=== PATIENT | male | born 1985 | race Caucasian/White ===

== ENCOUNTER 2018-07-20 06:57 | Emergency (ER) | payer OTHER, BC ==
--- NOTE | 2018-07-20 07:22 | EDM.PDOC ---
ED HPI GENERAL MEDICAL PROBLEM - General Chief Complaint: General Stated Complaint: TINGLING HANDS AND BODY AND FEELING HOT Time Seen by Provider: 07/20/18 07:05 Source of Information: Reports: Patient, Family (co worker ) History Limitations: Reports: No Limitations - History of Present Illness INITIAL COMMENTS - FREE TEXT/NARRATIVE: 33-year-old male presents to the ED with reports of sudden onset of development of numbness and tingling in his perioral area as well as both hands and particularly his arms. [place] a diffuse flushing hot prickly sensation as well. This occurred while traveling in a vehicle on his way to work the symptoms lasted well over half an hour. When he arrived here he states he was starting to feel better. He did feel a little weak and a little off balance when he got out of the vehicle. Examination reveals him to be alert and oriented and neuro exam is completely normal. Patient recently started sertraline anxiety disorder about 8 days ago. He takes this at bedtime. Also had started lisinopril tablet for hypertension. Initial BP was 105/60 which was probably incorrect. Second one was 135/86. Patient reassured that his symptoms were caused by anxiety attack which may or may not be related to use of sertraliine. SSRIs are common to worsen anxiety symptoms over the first 10 or 12 days of use and then usually symptoms side effects subside. Patient was advised in this regard and advised to continue the sertraline long-term. Onset: Today Onset Date: 07/20/18 Onset Time: 06:25 Duration: Minutes: Location: Reports: Generalized (Generalized numbness and tingling but particularly noted in his upper extremities with a hot flushed sensation that had gone throughout his body) Quality: Reports: Other Severity: Moderate (Hot flushing numbness and tingling.) Improves with: Reports: Other (Improves spontaneously over time) Worsens with: Reports: Other Context: Reports: Other (Occurred while sitting in a motor vehicle on the way to work). Denies: Activity, Exercise, Lifting, Sick Contact, Trauma Associated Symptoms: Reports: Weakness, Other (Sense of generalized weakness numbness and tingling particularly noted in his upper extremities.). Denies: Confusion, Chest Pain, Cough, cough w sputum, Diaphoresis, Fever/Chills, Loss of Appetite, Malaise, Nausea/Vomiting, Rash, Seizure, Shortness of Breath, Syncope Treatments ADVANCED REGISTERED NURSE: Reports: Other (see below) (None.) Left Chest Pain Score (Numeric/FACES): 1 - Related Data Allergies Allergy/AdvReac Type Severity Reaction Status Date / Time No Known Allergies Allergy Verified 07/20/18 07:07 Home Meds: Home Meds Esomeprazole Magnesium [Nexium 24Hr] 20 mg PO DAILY 07/20/18 [History] Losartan [Cozaar] 50 mg PO DAILY 07/20/18 [History] Sertraline HCl [Zoloft] 50 mg PO DAILY 07/20/18 [History] hydroCHLOROthiazide [Hydrochlorothiazide] 25 mg PO DAILY 07/20/18 [History] Past Medical History Cardiovascular History: Reports: Hypertension (Recently started on lisinopril in addition to hydrochlorothiazide for blood pressure control. Currently is trying to lose weight.) Gastrointestinal History: Reports: GERD Psychiatric History: Reports: Anxiety (Recently started on sertraline for anxiety disorder) Social & Family History - Tobacco Use Smoking Status *Q: Never Smoker - Caffeine Use Caffeine Use: Reports: Soda - Recreational Drug Use Recreational Drug Use: No - Living Situation & Occupation Occupation: Employed ED ROS GENERAL - Review of Systems Review Of Systems: See Below Constitutional: Reports: Fatigue. Denies: Fever, Chills, Malaise, Weakness, Decreased Appetite, Weight Loss HEENT: Reports: No Symptoms Respiratory: Reports: No Symptoms Cardiovascular: Reports: No Symptoms Endocrine: Reports: No Symptoms GI/Abdominal: Reports: No Symptoms : Reports: No Symptoms Musculoskeletal: Reports: No Symptoms Skin: Reports: No Symptoms Neurological: Reports: Numbness, Paresthesia (Particularly in his upper extremities and hands.), Tingling, Difficulty Walking ( Periorally as well.little weak with little feeling of being off balance when he got out of the vehicle. Feels better now. ) Psychiatric: Reports: Anxiety, Other. Denies: Confusion, Cravings, Depression, Homicidal Ideation, Mood Lability, Suicidal Ideation Hematologic/Lymphatic: Reports: No Symptoms (Recently started on sertraline for anxiety disorder about 8 days ago) Immunologic: Reports: No Symptoms ED EXAM, GENERAL - Physical Exam Exam: See Below Exam Limited By: No Limitations General Appearance: Alert, WD/WN, Anxious (Mild) Eye Exam: Bilateral Eye: Normal Inspection Head: Atraumatic, Normocephalic Neck: Normal Inspection, Supple, Non-Tender, Full Range of Motion. No: Carotid Bruit, Lymphadenopathy (L), Lymphadenopathy (R) Respiratory/Chest: No Respiratory Distress, Lungs Clear, Normal Breath Sounds, No Accessory Muscle Use, Chest Non-Tender Cardiovascular: Normal Peripheral Pulses, Regular Rate, Rhythm, No Edema, No Murmur, No Rub Peripheral Pulses: 3+: Carotid (L), Carotid (R) GI/Abdominal: Normal Bowel Sounds, Soft, Non-Tender, No Organomegaly, No Abnormal Bruit, No Mass, Pelvis Stable Extremities: Normal Inspection, Normal Range of Motion, Non-Tender, No Pedal Edema Neurological: Alert, Oriented, CN II-XII Intact, Normal Cognition, Normal Gait, Normal Reflexes, No Motor/Sensory Deficits, Other (No pronator drift. Normal finger to nose assessment normal rapid alternating movements normal gait) Psychiatric: Anxious Skin Exam: Warm, Dry (Mildly anxious), Intact, Normal Color, No Rash Course - Vital Signs Last Recorded V/S: Last Vital Signs Temp 36.4 C 07/20/18 07:04 Pulse 80 07/20/18 07:04 Resp 16 07/20/18 07:04 BP 105/82 07/20/18 07:04 Pulse Ox 100 07/20/18 07:04 - Orders/Labs/Meds Meds: Medications Discontinued Medications Generic Name Dose Route Start Last Admin Trade Name Freq PRN Reason Stop Dose Admin Lorazepam 2 mg 07/20/18 07:27 Ativan PO 07/20/18 07:28 ONETIME ONE - Radiology Interpretation Free Text/Narrative:: 33-year-old male presented to the ED with a one half hour symptom onset of diffuse numbness and tingling particularly affecting his upper extremities and some paranoia oral paresthesias as well. He then developed a hot flushing sensation that seemed to go throughout his body . The symptoms occur well he was a passenger in a motor vehicle traveling [place]ite [place] of [place]. Work her up to bring him to the ED. By the time he got here symptom complex that the most part resolved. Overall symptoms lasted a good half hour. Still feels weak and shaky. But pretty well feels back to normal. Only banana for breakfast as he try to lose weight because of his recent diagnosis of hypertension. 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 Neurological exam is completely normal. Assessment is anxiety attack with panic-like attack. He did experience some troubles with getting a deep breath but he was not aware of any palpitations or no strong sense of doom . Plan Gatorade in last and application support developer another bottle later today to make sure his electrolytes are okay as he's been more or less starving himself and we bit an effort to lose weight. I think the sertraline he was recently started on may well of help precipitated an acute anxiety attack as it's well-known to make anxiety symptoms worse the first 10 or 12 days of use of the medication. I gave him 2 tablets of Ativan 1 mg strength to be used 1 tablet every 8 hours if needed for similar type symptoms. He is encouraged to continue with his sertraline as long-term this will bring the symptom complex under control. Follow up with his personal physician as planned Departure - Departure Time of Disposition: 07:26 Disposition: Home, Self-Care 01 Condition: Fair Clinical Impression: Acute hyperventilation syndrome, Anxiety attack - Discharge Information *PRESCRIPTION DRUG MONITORING PROGRAM REVIEWED*: Not Applicable *COPY OF PRESCRIPTION DRUG MONITORING REPORT IN PATIENT DAREN: Not Applicable Instructions: Generalized Anxiety Disorder, Adult, Hyperventilation, Panic Attack, [id number] Referrals: PCP,None [Primary Care Provider] - Forms: ED Department Discharge Additional Instructions: Evaluation the emergency room today in regards to development of diffuse numbness and tingling particularly in the upper extremities and hands in part perhaps mildly in the face. Treated feeling hot prickly all over. This is a result of an overactive nervous system or anxiety attack. It can sometimes come on for no reason. It can be precipitated however by sertraline which we have recently started it'll occur sometimes whilst taking the medication in the first 12 days or so. After that usually it doesn't reoccur. Examination neurologically is completely normal today. My feeling much better at the time my examination. Treatment is Ativan tablets 1 mg strength to be used only if a similar occurrence occurs. He can be taken once every 12 hours if needed. 2 tablets were provided to the ED today. Suggest taking the sertraline with her supper meal to try and reduce its absorption into the bloodstream on a more gradual basis. Continue the medication as long-term it would prevent similar type recurrences and bring anxiety symptoms under control.
[2018-07-20] MEDS ORDERED: LORazepam 1 MG Tab PO ONE (07:27)
== END 2018-07-20 07:37 | disposition home or self-care (01) ==
LOC: JD.ED 06:57
DX: F41.9 Anxiety disorder, unspecified (principal); R06.4 Hyperventilation; I10 Essential (primary) hypertension
CPT/HCPCS: 99283; A9270; 99284